=== PATIENT | female | born 1985 | race Caucasian/White ===

== ENCOUNTER 2019-01-10 11:47 | Emergency (ER) | payer OTHER ==
--- NOTE | 2019-01-10 12:28 | ED.PDOC ---
History of Present Illness - General Chief Complaint: [employer] Problem Time Seen by Provider: 01/10/19 12:16 Source: patient Exam Limitations: no limitations - History of Present Illness Initial Comments: Patient is a G1 at 12 weeks and 5 days by LMP who presents with vaginal bleeding and lower abdominal pain. She says she got an ultrasound 5 days ago that showed an intrauterine with a low lying placenta. She was diagnosed at that time with bacterial vaginosis and prescribed Flagyl. She says she had mild bleeding afterwards but that it stopped yesterday. She did not have pain until today. This morning she passed several clots and has had a small but steady amount of bleeding for the past 4 hours. The pain is in a band-like pattern in the lower abdomen that is constant, aching, worse with movement, better with rest. The patient denies other symptoms. Timing/Duration: 4-6 hours Severity: mild Improving Factors: rest Worsening Factors: movement Associated Symptoms: denies symptoms Allergies/Adverse Reactions: Allergies NO KNOWN ALLERGY Allergy (Verified 01/10/19 12:36) Review of Systems - Review of Systems Constitutional: States: no symptoms reported EENTM: States: no symptoms reported Respiratory: States: no symptoms reported Cardiology: States: no symptoms reported Gastrointestinal/Abdominal: States: see HPI Genitourinary: States: see HPI Musculoskeletal: States: no symptoms reported Skin: States: no symptoms reported Neurological: States: no symptoms reported Endocrine: States: no symptoms reported Hematologic/Lymphatic: States: no symptoms reported Physical Exam - Physical Exam General Appearance: Alert Respiratory: lungs clear, normal breath sounds Cardiovascular/Chest: normal peripheral pulses, regular rate, rhythm Gastrointestinal/Abdominal: normal bowel sounds, soft, tenderness - Mild TTP bilateral lower quadrants. Back Exam: normal inspection, no CVA tenderness Extremity: normal range of motion, non-tender, normal inspection Neurologic: no motor/sensory deficits, alert, normal mood/affect, oriented x 3 Skin Exam: normal color Lymphatic: no adenopathy Progress - Progress Progress: 01/10/19 13:41 Laboratory Tests 01/10/19 01/10/19 01/10/19 12:36 12:36 12:36 WBC 9.0 RBC 4.25 Hgb 12.3 Hct 37.1 MCV 87.1 MCH 28.9 MCHC 33.2 RDW 15.0 H Plt Count 190 MPV 9.2 Absolute Neuts (auto) 6.30 Absolute Lymphs (auto) 1.80 Absolute Monos (auto) 0.70 Absolute Eos (auto) 0.10 Absolute Basos (auto) 0.00 Neutrophils % 70.4 Lymphocytes % 20.5 Monocytes % 7.4 Eosinophils % 1.2 Basophils % 0.5 PT 9.8 INR 0.98 PTT (SP) Sodium 134 L Potassium 3.5 L Chloride 104 Carbon Dioxide 22 Anion Gap 11.5 L BUN < 5 L Creatinine 0.55 L BUN/Creatinine Ratio 9.1 L Random Glucose 81 Serum Osmolality 264.5 L Calcium 8.6 Total Bilirubin 0.7 AST 12 ALT 10 Alkaline Phosphatase 32 L Serum Total Protein 6.4 Albumin 3.4 Globulin 3.0 Albumin/Globulin Ratio 1.1 01/10/19 12:36 WBC RBC Hgb Hct MCV MCH MCHC RDW Plt Count MPV Absolute Neuts (auto) Absolute Lymphs (auto) Absolute Monos (auto) Absolute Eos (auto) Absolute Basos (auto) Neutrophils % Lymphocytes % Monocytes % Eosinophils % Basophils % PT INR PTT (SP) 24.9 Sodium Potassium Chloride Carbon Dioxide Anion Gap BUN Creatinine BUN/Creatinine Ratio Random Glucose Serum Osmolality Calcium Total Bilirubin AST ALT Alkaline Phosphatase Serum Total Protein Albumin Globulin Albumin/Globulin Ratio U/S showed 14 week IUP. There were two large fibroids with mass effect on the gestational sac. I called the patient's rn cardiac rehab, Dr. Quiroz, and reported the results to him. He recommended bed rest with no sexual activity and to follow up with him as scheduled. Care instructions given. E.R. warnings given. Questions were elicited and answered. Patient voiced understanding and agreement with the plan 01/10/19 13:43 Departure - Departure Clinical Impression: Vaginal bleeding affecting early Disposition: Discharge to Home or Self Care Condition: Good Departure Forms: ED Discharge - Pt. Copy, Patient Portal Self Enrollment Instructions: DI for Vaginal Bleeding During Diet: resume usual diet Activity: other - bed rest until told different by your rn cardiac rehab Referrals: ELLE QUIROZ JR [Primary Care Provider] - 1-2 Weeks Additional Instructions: Bed rest until you are told different by your rn cardiac rehab. Do not engage in sexual activity until you are told that you can by your rn cardiac rehab. Call your rn cardiac rehab on Sunday and ask if he wants to see you earlier than your next appointment. Return to the E.R. for increasing pain or bleeding. Tylenol only for pain control.
--- NOTE | 2019-01-10 13:15 | US ---
EXAM DESCRIPTION: OB ,Early (0-14wks): Ultrasound. CLINICAL HISTORY: 33 years Female vaginal bleeding. 1, para 0. LMP unknown. By clinical history, EGA is 12 weeks and 5 days. BERTA 07/20/2019. COMPARISON: None. TECHNIQUE: Transpelvic scanning through the urine filled bladder: 2-dimensional and Doppler modes. FINDINGS: Uterus: 16.4 x 10.7 x 8.3. Cervix partially visualized. Hypoechoic mass in the anterior myometrial wall measuring 4.0 x 3.8 x 3.1 cm with mass effect on the gestational sac. Less hypoechoic mass in the posterior uterine wall with mass effect on the gestational sac. Dimensions 5.8 x 4.7 x 4.4 cm. Gestational sac: Well-defined and elongated. AFV: Subjectively normal. pole: Mean crown-rump length 8.01 cm for EGA 14 weeks and 0 days. Yolk sac: Not visualized. Subchorionic hemorrhage: Not visualized. heart tones: 154 bpm. Cul-de-sac: No fluid. Comments: EGA by crown-rump length corresponds to BERTA 07/11/2019. Right ovary not seen in the right adnexa. No dominant cyst.. No adnexal mass or free fluid. Left ovary not seen in the left adnexa. No dominant cyst. No adnexal mass or free fluid. IMPRESSION: 1. Single living intrauterine gestation in variable presentation. EGA 14 weeks and 0 days with BERTA 07/11/2019. This is 9 days older than the EGA by medical history. 2. 2 large fibroids 5.8 cm and 4 cm, with mass effect on the gestational sac. No subchorionic hemorrhage. No fluid in the cul-de-sac. 3. Ovaries, cysts, fluid, mass NOT seen in the adnexa. Electronically signed by: Isaiah Terry MD 01/10/2019 1:12 PM CDT
[2019-01-10 14:32] VITALS: BP 112/76; TEMP 97; O2SAT 99
== END 2019-01-10 14:20 | disposition home or self-care (01) ==
LOC: ER 11:47
DX: O26.851 Spotting complicating pregnancy, first trimester (principal); O34.11 Maternal care for benign tumor of corpus uteri, first trimester; Z3A.14 14 weeks gestation of pregnancy; Z86.19 Personal history of other infectious and parasitic diseases